=== PATIENT | female | born 1975 | race Caucasian/White ===

== ENCOUNTER → 2016-11-22 | Outpatient (CLI) | payer OTHER ==
[~2016-11-22] MED LIST: ADVAIR; ALBUTEROL17 GM; ALLERGY MED; ALLERGY MEDICAT25 M1; BACTRIM DS TABL1 TA1 PO; COMBIVENT U/D3 M3 INH; DERMACORT1 GM; DICLOFENAC PO; FLEXERIL10 MG PO; IMITREX25 MG PO; IRON1 TAB; LIPITOR PO; MEDROL DOSEPAK4 MG PO; MOTRIN400 MG PO; PHENERGAN25 MG PO; PROZAC; TYLENOL #3 PO; VICODIN 5/1 TAB 5/50 PO; ZOFRAN ODT4 MG SL
[2016-11-22 12:13] LABS: HEMATOCRIT 36.7 % (35.0-45.0); HEMOGLOBIN 12.1 gm/dL (12.0-16.0); MEAN CELL VOLUME 91.2 FL (83-96); MEAN CORPUSCULAR HGB CONC 32.9 g/dL (30-36); MEAN PLATELET VOLUME 9.4 FL (6.5-11.5); RED BLOOD COUNT 4.02 X10e (3.90-5.30); RED CELL DISTRIBUTION WIDTH 14.1 % (11.0-15.5); WHITE BLOOD COUNT 6.4 X10e3 (4.0-10.5)
[2016-11-22 13:14] LABS: THYROID STIMULATING HORMONE 1.08 uIU/ml (0.34-5.60)
[2016-11-22 13:21] LABS: FREE THYROXIN (T4) 1.02 ng/dL (0.58-1.64)
== END | disposition home or self-care (01) ==
LOC: CLAB 11:08
PROVIDERS: Dermatology
DX: L65.9 Nonscarring hair loss, unspecified (principal)
CPT/HCPCS: 36415; 84439; 84443; 85027